=== PATIENT | female | born 1955 | race Caucasian/White ===

== ENCOUNTER → 2016-06-26 | Outpatient (CLI) | payer OTHER ==
--- NOTE | 2016-06-26 15:23 | DIAGNOSTIC IMAGING REPORT ---
LYMPH SENTINEL NODE ID CLINICAL HISTORY: BREAST CA COMPARISON STUDY: No previous studies for comparison. FINDINGS: A timeout was performed. 5 intradermal injections utilizing a total of 0.51 mCi of technetium 99m Lymphoseek were performed of the upper-outer quadrant of the right breast as prescribed by the referring clinician . No imaging was performed. IMPRESSION: Successful right breast lymphoscintographic injection Electronically signed by: Everardo Mckeon M.D. 06/26/2016 2:51 PM Dictated Date/Time: 06/26/2016 2:48 PM
== END | disposition home or self-care (01) ==
LOC: C.NUCL 13:42
PROVIDERS: ATTEND Surgery
DX: C50.911 Malignant neoplasm of unspecified site of right female breast (principal)